=== PATIENT | male | born 1950 ===

== ENCOUNTER 2018-12-22 07:31 | Day surgery (SDC) | payer OTHER, MEDICARE ==
[~2018-12-22] VITALS: Ht 175.3 cm; Wt 94.3 kg
[~2018-12-22 07:31] MED LIST: ASPI325 PO; CIPR500 PO; MULVITMIND PO; PHENA100 PO; SIMV20 PO
--- NOTE | 2018-12-22 08:23 | NUR ---
12/22/18 0823 Olga Roy TOTAL OF 4 IV ATTEMPTS; UNABLE TO GET INTO VEIN ON THE FIRST 3. PATIENT TOLERATED ALL ATTEMPTS WELL. IV IS NOW RUNNING IN THE LEFT FOREARM.
== END 2018-12-22 09:45 | disposition home or self-care (01) ==
LOC: ORSCSDS 07:31
PROVIDERS: Ophthalmology
PROC: 08RJ3JZ Replacement of Right Lens with Synthetic Substitute, Percutaneous Approach (ICD-10-PCS; principal; 2018-12-22 09:00)
DX: H25.11 Age-related nuclear cataract, right eye (principal); I10 Essential (primary) hypertension; Z79.899 Other long term (current) drug therapy; Z79.82 Long term (current) use of aspirin
CPT/HCPCS: J2001; J2250; J3010; J3301; J7120; V2632

== ENCOUNTER 2019-02-09 07:04 | Day surgery (SDC) | payer OTHER, MEDICARE ==
[~2019-02-09] VITALS: Ht 175.3 cm; Wt 93.6 kg
[~2019-02-09 07:04] MED LIST changes: +Advil Migraine200 MG PO; +CETI5 PO; +CHOL10002 PO; +CO Q10100 MG PO; +CYAN500; +LISI20 PO; +TRAZ50 PO
== END 2019-02-09 09:35 | disposition home or self-care (01) ==
LOC: ORSCSDS 07:04
PROVIDERS: Ophthalmology
PROC: 08RK3JZ Replacement of Left Lens with Synthetic Substitute, Percutaneous Approach (ICD-10-PCS; principal; 2019-02-09 08:30)
DX: H25.12 Age-related nuclear cataract, left eye (principal); I10 Essential (primary) hypertension; Z79.899 Other long term (current) drug therapy
CPT/HCPCS: J2001; J2250; J3301; V2632

== ENCOUNTER 2023-01-19 08:31 | Day surgery (SDC) | payer MEDICARE, BC ==
[~2023-01-19] VITALS: Ht 175.3 cm; Wt 89.5 kg
[2023-01-19] MEDS ORDERED: ASPIR 8181 MG (08:49)
[2023-01-19] MEDS ORDERED: KRILL OIL 1,001 EAC1 (08:49)
[2023-01-19] MEDS ORDERED: AMLO5 (08:50)
[2023-01-19 11:06] VITALS: BP 107/75
== END 2023-01-19 11:05 | disposition home or self-care (01) ==
LOC: ORSCSDS 08:31
PROVIDERS: Internal Medicine Gastroenterology
PROC: 0DBP8ZX Excision of Rectum, Via Natural or Artificial Opening Endoscopic, Diagnostic (ICD-10-PCS; principal; 2023-01-19 09:45)
PROC: 0DBH8ZX Excision of Cecum, Via Natural or Artificial Opening Endoscopic, Diagnostic (ICD-10-PCS; principal; 2023-01-19 09:45)
DX: Z12.11 Encounter for screening for malignant neoplasm of colon (principal); D12.0 Benign neoplasm of cecum; K62.1 Rectal polyp; K57.30 Diverticulosis of large intestine without perforation or abscess without bleeding; Z79.82 Long term (current) use of aspirin; Z79.899 Other long term (current) drug therapy
CPT/HCPCS: 88305; J2704; J7120